=== PATIENT | male | born 1930 | race Caucasian/White ===

== ENCOUNTER → 2016-06-11 | Outpatient (CLI) | payer MEDICARE ==
[~2016-06-11] MED LIST: ALFU10TA2 PO; AMIO200 PO; COUM3TAB PO; LANO0.2510 PO; NIAC500T5 PO; PROS5TAB2 PO; PROT40TA PO; ZOCO80TA PO
[2016-06-11 14:28] LABS: BICARBONATE 28.3 MEQ/L (21.0-32.0); POTASSIUM 4.1 MEQ/L (3.5-5.1)
== END ==
LOC: ELAB 11:58
PROVIDERS: ATTEND Internal Medicine Cardiovascular Disease
DX: R06.02 Shortness of breath (principal); Z79.899 Other long term (current) drug therapy
CPT/HCPCS: 36415; 80048; 83880

== ENCOUNTER → 2017-02-13 | Outpatient (CLI) | payer MEDICARE ==
--- NOTE | 2017-02-13 12:09 | RADRPT ---
EXAM DATE/TIME: 02/13/2017 11:18 [place] COMPARISON: No previous studies available for comparison. INDICATIONS : Right leg edema. History of deep vein thrombosis and pulmonary embolism. MEDICAL HISTORY : Myocardial infarction. Hypercholesterolemia. Arthritis. Syncope. Coronary artery disease. HTN. Ski n tags. SURGICAL HISTORY : Cataracts. Cardiac cath. Chest surgery. ENCOUNTER: Initial ACUITY: 1 month PAIN SCORE: 0/10 LOCATION: Right leg. TECHNIQUE: Venous ultrasound of the leg was performed from the inguinal ligament to the proximal calf. Real-chay e, color Doppler and spectral tracing, compression and augmentation techniques were used. FINDINGS: There is normal compressibility of the deep venous system from the inguinal region to the proximal ca lf. No echogenic clot is seen in the lumen of the common femoral, femoral, popliteal, and posterior tibial veins. There is a normal response of the venous system to proximal and distal augmentation an d respiration. Large 6 cm medial thigh hematoma is present with some liquefication. CONCLUSION: Negative for deep venous thrombosis. Known partially liquefied hematoma right medial thigh. Lalo Lares MD FACR on February 13, 2017 at 12:07 Board Certified Radiologist. This report was verified electronically.
== END ==
LOC: HRAD 10:43
PROVIDERS: ATTEND Nurse Practitioner Family
DX: R60.0 Localized edema (principal)
CPT/HCPCS: 93971